=== PATIENT | female | born 1970 | race Caucasian/White ===

== ENCOUNTER 2018-02-07 06:28 | Emergency (ER) | payer SELFPAY ==
[2018-02-07] MEDS ORDERED: NS 0.9% 1000 ML* 1,000 ML IV ONE ×2 (06:43→08:36)
--- NOTE | 2018-02-07 07:08 | ED ---
Libertad Freeman Rebecca, scribed for Po Iglesias MD on 02/07/18 at 0643 . Neurological HPI - HPI Summary HPI Summary: Pt is a 48 y/o F who presents to ED s/p suspected seizure while at work this morning in the ICU. Per staff who witnessed the episode, she fell down and hit her forehead on a marble countertop, breaking the counter. She had a C-Collar applied and on a backboard for transportation to the ED from ICU. Upon arrival to the ED, the pt is alert but nonverbal. When asked, she nods yes that she is experiencing lumbar back pain. The pt does not verbally answer any questions, shaking her head yes and no in response to questions. No PMHx seizure. Found Tramadol in her bag. Level 5 caveat - nonverbal - History of Current Complaint Chief Complaint: EDSeizure Stated Complaint: SEIZURE Hx Obtained From: Patient, Other: - Witnesses Hx From Patient Unobtainable Due To: Other - Nonverbal Onset/Duration: Resolved Pain Intensity: 0 Pain Scale Used: 0-10 Numeric Frequency: Episodes x___ - 1 Aggravating: Nothing Alleviating: Spontanious Resolution Associated Signs and Symptoms: Positive: Seizure PMH/Surg Hx/FS Hx/Imm Hx Neurological History: Denies: Hx Seizures Psychiatric History: Reports: Hx Anxiety Infectious Disease History: Unable to Obtain/Confirm Infectious Disease History: Denies: Traveled Outside the [place] in Last 30 Days - unknown - Family History Known Family History: Positive: Unknown - Nonverbal - Social History Occupation: Employed Full-time - [employer] Alcohol Use: Unknown Hx Substance Use: No - Unknown Review of Systems Positive: Other - Lumbar back pain Neurological: Other - Nonverbal All Other Systems Reviewed And Are Negative: No - Comments Additional Review of Systems Comments: Level 5 caveat - nonverbal Physical Exam - Summary Physical Exam Summary: VITAL SIGNS: Reviewed. GENERAL: Patient is a well-developed and nourished female who is c-collared and on a backboard. Patient is not in any acute respiratory distress. HEAD AND FACE: Localized swelling over the right forehead which seems tender. No ecchymosis, hematomas or skull depressions. No sinus tenderness. EYES: PERRLA, EOMI x 2, No injected conjunctiva, no nystagmus. EARS: Hearing grossly intact. Ear canals and tympanic membranes are within normal limits. MOUTH: Oropharynx within normal limits. NECK: Pt has a c-collar and on backboard CHEST: Symmetric, no tenderness at palpation LUNGS: Clear to auscultation bilaterally. No wheezing or crackles. CVS: Regular rate and rhythm, S1 and S2 present, no murmurs or gallops appreciated. EXTREMITIES: Complains of low back pain, FROM in all major joints, no edema, no cyanosis or clubbing. NEURO: Pt follows commands, motor and sensory exams are intact, coordination is normal, pt is nonverbal SKIN: Dry and warm GCS: 15 Triage Information Reviewed: Yes Vital Signs On Initial Exam: Initial Vitals Temp Pulse Resp BP Pulse Ox 98.8 F 91 18 138/74 97 02/07/18 06:34 02/07/18 06:34 02/07/18 06:34 02/07/18 06:34 02/07/18 06:34 Vital Signs Reviewed: Yes Diagnostics - Vital Signs Vital Signs Temp Pulse Resp BP Pulse Ox 02/07/18 06:34 98.8 F 91 18 138/74 97 - Laboratory Lab Statement: Any lab studies that have been ordered have been reviewed, and results considered in the medical decision making process. - EKG 0619 Cardiac Rate: NL - 89 bpm EKG Rhythm: Sinus Rhythm ST Segment: Non-Specific EKG Interpretation: Done in the ICU. Normal axis, normal interval, no ischemic changes Re-Evaluation - Re-Evaluation First Eval Re-Evaluation Time: 06:52 Comment: At this time, the pt is awake, alert and oriented x3. Reports a PMHx of anxiety. After talking to the pt's mother she ocnfirms the PMHx of anxiety and reports that the pt's son 2 years ago and that she has been giong through grieving. She takes anti-anxiety medications and anti-depressants, though her mother is unsure of the name. Pt reports that she does not remember anything after arriving at [facility], including being in the ICU or what happened. She is currently complaining of discomfort from the C-collar. Course/Dx - Course Assessment/Plan: Pt is a 48 y/o F who presents to ED s/p suspected seizure while at work this morning in the ICU. Per staff who witnessed the episode, she fell down and hit her forehead on a marble countertop, breaking the counter. She had a C-Collar applied and on a backboard for transportation to the ED from ICU. Upon arrival to the ED, the pt is alert but nonverbal. When asked, she nods yes that she is experiencing lumbar back pain. The pt does not verbally answer any questions, shaking her head yes and no in response to questions. No PMHx seizure. Found Tramadol in her bag. EKG is sinus rhythm. Pt will be signed out to Dr. Miller, pending dispo, awaiting CTs and CXR. Level 5 caveat - nonverbal - Diagnoses Provider Diagnoses: Seizure Discharge - Sign-Out/Discharge Documenting (check all that apply): Sign-Out Patient Signing out patient TO: Guillermo Miller - Discharge Plan Referrals: No Primary Care Phys,NOPCP [Primary Care Provider] - The documentation as recorded by the Libertad davenport Rebecca accurately reflects the service I personally performed and the decisions made by me, Po Iglesias MD.
[2018-02-07] MEDS ORDERED: Ondansetron INJ* 2 MG/ML VIAL IV ONE ×2 (07:10→08:20)
[2018-02-07] MEDS ORDERED: Acetaminophen TAB* 325 MG PO ONE (07:29)
[2018-02-07] MEDS ORDERED: Morphine VIAL* 4 MG/ML VIAL (1 ml vial) IV ONE (07:30)
[2018-02-07 07:34] LABS: Hematocrit 38 % (35-47); Mean Corpuscular HGB Conc 34 g/dl (31-36); Mean Corpuscular Hemoglobin 32 pg (27-31); Mean Corpuscular Volume 92 fL (80-97); Mean Platelet Volume 9.2 um3 (7.4-10.4); Platelet Count 358 10^3/ul (150-450); Red Blood Count 4.13 10^6/ul (4.00-5.40); Red Cell Distribution Width 13 % (10.5-15)
--- NOTE | 2018-02-07 07:42 | RAD ---
indication: Seizure with a subsequent fall COMPARISON: None A CT scan of the brain and c-spine was performed without intravenous contrast enhancement. Contiguous axial sections were obtained from the lung apices through the vertex. BRAIN: The ventricles, cisterns and sulci are within normal limits. No significant focal abnormality or mass effect is seen. The teran-white differentiation is adequately maintained. There is no intracranial hemorrhage. There is subcutaneous hyperattenuation and thickening overlying the right frontal bone. No significant bony abnormality is present. The mastoid air cells are appropriately aerated. There is mild mucosal thickening of the anterior ethmoidal air cells. C-SPINE: There is a metallic prostheses at the intervertebral disc space of C4/C5. There is a mild degree of straightening of the normal cervical lordosis. Degenerative changes of the cervical spine includes loss of intervertebral disc height at C5/C6 and C6/C7. The vertebral bodies and facet joints are otherwise appropriately aligned. There is no hyperdense material in the cervical canal to indicate hemorrhage. The visualized musculature and soft tissues are normal. There is no gross lymphadenopathy visualized. The visualized portion of the lung apices are clear. IMPRESSION: 1. There is a subcutaneous hematoma overlying the right frontal bone without underlying calvarial fracture or acute intracranial hemorrhage. 2. There are chronic, degenerative and postsurgical changes in the cervical spine without acute fracture or dislocation.
[2018-02-07 07:48] LABS: EGFR Non-African American 81.9 (>60)
[2018-02-07 07:59] LABS: INR 0.82 (0.77-1.02)
[2018-02-07] MEDS ORDERED: Ondansetron SYRINGE* 4 MG/2 ML SYRINGE (from 40mg/20ml vial) IV ONE ×2 (08:00→09:00)
[2018-02-07 08:17] LABS: ABS Basophils 0 10^3/ul (0-0.2); ABS Eosinophils 0.4 10^3/ul (0-0.6); ABS Lymphocytes 6.1 10^3/ul (1.0-4.8); ABS Monocytes 0.9 10^3/ul (0-0.8); ABS Neutrophils 5.6 10^3/ul (1.5-7.7); ABS Nucleated RBC 0 10^3/ul; Eosinophil % 2.9 % (0-6); Lymphocyte % 47.1 % (25-47); Nucleated Red Blood Cells % 0
[2018-02-07 08:30] LABS: Urine Appearance Clear; Urine Blood Negative (Negative); Urine Color Yellow; Urine Ketones Negative (Negative); Urine Protein Negative (Negative); Urine Specific Gravity 1.011 (1.010-1.030); Urine Urobilinogen Negative (Negative)
--- NOTE | 2018-02-07 08:33 | PN ---
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 She then proceeded to convulse briefly. Upon my arrival , she was no longer convulsing. Her eyes were open and she was making small non- purposeful movements. She would not focus or follow request. She did not speak during the evaluation. Pupils were ~8mm & sluggish B. She had a large focal hematoma on her R forehead. I immediately obtained & maintained control of her C -spine until C-collar was in place and she was strapped to a backboard. Glucose was >100. ECG showed no ischemic changes. She was able to maintain her own airway with saO2 >95%. Pulse & BP were stable. Lungs were CTAB. CV RRR. Abdomen was non-distended. Integument: diaphoretic, forehead hematoma as above w/o laceration. While obtaining the ECG & securing her C-spine, nursing was able to draw blood and establish an IV. At ~0525, she began to follow requests and make purposeful movements, but was still not talking. She was then transported to the ED and [id number] handoff made with A MD Kelsie ED. NOTE: She was unable to provide any history. We initially only had her first & last name. The other environmental technician was requested to go the their lounge and retrieve her purse, a quick examination of which revealed her date of and a bottle of tramadol. No PMedHX, PSurgHX, SocHX, or FamHX was able to be obtained.
--- NOTE | 2018-02-07 08:41 | RAD ---
Indication: Seizure and fall. Comparison: No relevant prior exams available on the [facility] PACS for comparison. Technique: Upright AP 0751 hours Report: Clear lungs and pleural spaces. Negative for pneumothorax. The heart, pulmonary vasculature, and mediastinal contours are unremarkable. Unremarkable osseous structures and soft tissue contours. IMPRESSION: No evidence for acute intrathoracic disease.
[2018-02-07 10:53] VITALS: BP 137/74
[2018-02-07] MEDS ORDERED: Ibuprofen TAB* 600 MG PO ONE (11:02)
--- NOTE | 2018-02-07 12:20 | ED ---
Puneet Freeman Tiffany, scribed for Guillermo Miller on 02/07/18 at 0809 . Progress - Progress Note Progress Note: 48 y/o F signed out from Dr. Iglesias, pending reports, awaiting dispo. Brain CT and C-Spine CT, per radiologist, shows 1. There is a subcutaneous hematoma overlying the right frontal bone without underlying calvarial fracture or acute intracranial hemorrhage. 2. There are chronic, degenerative and postsurgical changes in the cervical spine without acute fracture or dislocation. CXR, per radiologist, shows No evidence for acute intrathoracic disease. ED physician has reviewed these reports. Course/Dx - Course Course Of Treatment: 48 y/o F complains of seizure this morning, signed out from Dr. Iglesias, awaiting reports and pending dispo. CT Brain, CXR, CT C-Spine obtained. Dr. Reid, neurology, advised to get EEG. EEG negative. Patient eloped from ED without her discharge paperwork. - Diagnoses Provider Diagnoses: Forehead contusion, Head injury, Seizure - Provider Notifications Discussed Care Of Patient With: Nae Reid Time Discussed With Above Provider: 09:30 Instructed by Provider To: Other - Dr. Reid, neurology, advised to get EEG. Discharge - Sign-Out/Discharge Documenting (check all that apply): Discharge/Admit/Transfer - eloped - Discharge Plan Condition: Fair Disposition: ELOPEMENT Referrals: No Primary Care Phys,NOPCP [Primary Care Provider] - The documentation as recorded by the Puneet davenport Tiffany accurately reflects the service I personally performed and the decisions made by , Guillermo Miller.
--- NOTE | 2018-02-08 03:31 | EEG ---
ELECTROENCEPHALOGRAPHY: DATE OF SERVICE: 02/07/18 DATE READ: 02/07/18 SEX: Female. ROOM: Emergency room. REFERRING PHYSICIAN: Guillermo Miller MD MEDICATIONS: 1. Tylenol. 2. Morphine. 3. Zofran. DURATION OF THE RECORDIN:16 a.m.-10:50 a.m. CLINICAL PROBLEM: Ms. Jen Triana is a 48-year-old female, who had 1 single seizure-like activity. This EEG was requested to evaluate for epileptiform abnormalities. CLINICAL STATE: Awake and drowsy. REPORT: The waking background showed appropriate organization with clearly defined anterior-posterior voltage and frequency gradients. There was a well- defined posterior dominant rhythm of 10 Hz, which was symmetrical and showed normal reactivity. Anteriorly, there was an expected pattern of lower voltage, irregular, and mixed faster frequencies. There was 1 interval at 10:32 where there is a questionable higher amplitude delta slowing lasting for 0.5 seconds maximally seen at Fp2 and F8. However, the Fp2-F8 electrode showed swing artifact and eye roving movements, hence this finding is likely nonspecific. There were no epileptiform abnormalities or electrographic seizures. Hyperventilations and photic stimulations were not performed. A single electrode ECG showed normal rhythm with a rate of 70 beats per minute. There was attenuation of the occipital rhythm during drowsy state. CLINICAL IMPRESSION: This is an essentially normal awake and drowsy EEG. There were no epileptiform abnormalities. A normal interictal EEG does not exclude or support the diagnosis of epilepsy. Clinical correlation is recommended. [id number]/[facility] #: [id number] [facility]
== END 2018-02-07 12:15 | disposition home or self-care (01) ==
LOC: ED 06:28
DX: S00.83XA Contusion of other part of head, initial encounter (principal); R56.9 Unspecified convulsions; S09.90XA Unspecified injury of head, initial encounter; W18.00XA Striking against unspecified object with subsequent fall, initial encounter; Y92.9 Unspecified place or not applicable; M54.5 Low back pain
CPT/HCPCS: 36415; 70450; 71045; 72125; 80053; 80307; 81003; 82150; 82550; 83605; 85025; 85060; 85610; 85730; 93005; 95816; 96374; 96375; 99284; A9270-GY; J2270; J2405